=== PATIENT | male | born 1975 | race Caucasian/White ===

== ENCOUNTER 2022-12-23 19:58 | Emergency (ER) | payer OTHER, SELFPAY ==
--- NOTE | ~2022-12-23 | CT_ITS ---
EXAMINATION: CT abdomen pelvis w con INDICATION: Abdominal pain and vomiting TECHNIQUE: Computed tomographic images of the abdomen and pelvis were obtained after the administrati on of 100 cc of Omnipaque 350 intravenous contrast. The dose-length product (DLP) was 679.51 mGy-cm. Automated exposure control and iterative reconstruction technique were employed. COMPARISON: None available FINDINGS: Minimal dependent atelectasis is present in the lung bases. The heart size is normal. Stone s are present in the gallbladder which is mildly distended. There is mild pericholecystic inflammator y change. No gallbladder wall thickening is identified. There is a focal area of subcapsular hyperenh ancement in liver segment which appears to connect portions of the right portal and hepatic veins, possible venovenous malformation. The spleen, pancreas, and right adrenal gland are normal. There is a 2.1 cm mass of the left adrenal gland. Cysts of the kidneys measure up to 2.3 cm on the left. No p athologically enlarged abdominal or pelvic lymph nodes are identified. No free intraperitoneal gas or evidence of bowel obstruction. The appendix is normal. IMPRESSION: 1. Cholelithiasis and mild gallbladder distention with mild pericholecystic inflammatory change, poss ibly cholecystitis. Consider further evaluation with ultrasound or nuclear hepatobiliary scan. Findin gs were communicated to the emergency Department at 1445 hours on 12/24/2022 Reviewed, dictated and finalized at location A. IMPRESSION: 1. Cholelithiasis and mild gallbladder distention with mild pericholecystic inf lammatory change, possibly cholecystitis. Consider further evaluation with ultr asound or nuclear hepatobiliary scan. Findings were communicated to the emergen cy Department at 1445 hours on 12/24/2022
[2022-12-23 20:06] VITALS: BP 124/85; PULSE 56; RESP 18; TEMP 36.5; O2SAT 100
[2022-12-23 20:18] LABS: Basophils Absolute Auto 0.1 K/mm3 (0.0-0.1); Basophils Percent Auto 0.7 % (0.2-1.2); Eosinophils Absolute Auto 0.1 K/mm3 (0-0.3); Eosinophils Percent Auto 0.8 % (0-4.4); Hematocrit 43.1 % (42.0-52.0); Immature Granulocyte Absolute 0.02 K/mm3 (0.00-0.031); Immature Granulocyte Percent A 0.2 % (0-0.5); Lymphocytes Absolute Auto 2.01 K/mm3 (0.9-3.2); Lymphocytes Percent Auto 19.9 % (18.3-44.2); Mean Corpuscular HGB Conc 37.1 g/dl (32-36); Mean Corpuscular Hemoglobin 32.9 pg (26-34); Mean Corpuscular Volume 88.5 fl (80-100); Mean Platelet Volume 10.5 fl (7.4-10.4); Monocytes Absolute Auto 0.6 K/mm3 (0.1-0.6); Monocytes Percent Auto 6.3 % (2.6-8.5); Neutrophils Absolute Auto 7.3 K/mm3 (1.3-6.7); Neutrophils Percent Auto 72.1 % (45.5-73.1); Platelet Count Result 201 k/mm3 (150-375); Red Blood Count 4.87 M/mm3 (4.6-6.20); Red Cell Distribution Width 11.8 % (11.5-14.5); White Blood Count 10.1 K/mm3 (4.5-10.0)
[2022-12-23 20:28] LABS: Alanine Aminotransferase 24 U/L (6-50); Albumin Level 4.9 g/dL (3.5-5.1); Alkaline Phosphatase 66 U/L (38-126); Anion Gap 8 mmol/L (8-16); Aspartate Amino Transferase 22 U/L (17-59); Bilirubin,Total 1.3 mg/dL (0.2-1.3); Blood Urea Nitrogen 11 mg/dL (9-20); Calcium 8.9 mg/dL (8.4-10.2); Carbon Dioxide 27 mmol/L (22-30); Chloride 104 mmol/L (98-107); Estimated CRCL calculation 95 ml/min; Estimated Glomerular Filt Rate > 60; Glucose 109 mg/dL (65-110); Lipase 112 U/L (23-300); Potassium 3.8 mmol/L (3.4-5.0); Sodium 139 mmol/L (137-145)
[2022-12-23 21:37] VITALS: BP 120/88; PULSE 74; RESP 18; TEMP 36.9; O2SAT 100
[2022-12-23 22:16] LABS: Appearance Urine Clear (Clear); Bacteria Urine None Seen /hpf; Bilirubin Urine 1+ (Negative); Blood Urine Negative (Negative); Color Urine Dark Yellow (Yellow); Glucose Urine UA Negative (Negative); Ketones Urine 1+ mg/dL (Negative); Leukocyte Esterase Ur Negative LEU/UL (Negative); Need Manual Microscopic Reviewed; Nitrate Urine Negative (Negative); Protein Urine Trace mg/dL (Negative); RBC Urine 0-2 /hpf (0-2); Squamous Epithelial Cell Urine None seen /hpf (Few); WBC Urine 0-5 /hpf; pH Urine 5.5 (5.0-9.0)
[2022-12-23 22:17] LABS: Add Urine Microscopic? YES
--- NOTE | 2022-12-23 23:10 | ED.ABDPAIN ---
HPI - Abdominal Pain General Chief Complaint: Abdominal Pain <BERYL Nesbitt Last Filed: 12/25/22 17:13> Stated Complaint: abd pain, nausea/vomiting blood <BERYL Nesbitt Last Filed: 12/25/22 17:13> Time Seen by Provider: 12/23/22 21:58 <BERYL Nesbitt Last Filed: 12/25/22 17:13> Source: patient <BERYL Nesbitt Last Filed: 12/25/22 17:13> Mode of arrival: ambulatory <BERYL Nesbitt Last Filed: 12/25/22 17:13> Limitations: no limitations <BERYL Nesbitt Last Filed: 12/25/22 17:13> History of Present Illness HPI narrative: This is a 47-year-old male that presents to the emergency department for abdominal pain. Reports he has suffered with chronic abdominal pain over the last several years. Reports the pain is intermittent and sharp in the epigastrium. Sometimes it lasts for several hours. It was usually at night. Now he also experiences this pain during the day. He has not been evaluated by GI doctor or had an endoscopy for this yet. He has had some nausea and vomiting associated with his pain today. He also reports he saw some streaks of blood in his vomit today. Denies fevers or diarrhea. <Jessica Reid PA-C - Last Filed: 12/25/22 17:13> Related Data Allergies/Adverse Reactions: Allergies Allergy/AdvReac Type Severity Reaction Status Date / Time No Known Allergies Allergy Verified 12/23/22 19:59 <BERYL Nesbitt Last Filed: 12/25/22 17:13> Review of Systems Review of Systems: CONSTITUTIONAL: Denies fever CARDIOVASCULAR: Denies chest pain RESPIRATORY: Denies dyspnea. GASTROINTESTINAL: Reports abdominal pain, nausea, vomiting. Denies diarrhea. <BERYL Nesbitt Last Filed: 12/25/22 17:13> All systems reviewed & are unremarkable except as noted in HPI and below <BERYL Nesbitt Last Filed: 12/25/22 17:13> PMFSH Past Medical History Medical History: Medical History (Updated 12/25/22 @ 00:00 by Christie Leo) No active medical problems <Jessica Reid PA-C - Last Filed: 12/25/22 17:13> Social History Social History: Social History (Updated 12/23/22 @ 23:13 by Jessica Reid PA-C) Substance use: never <Jessica Reid PA-C - Last Filed: 12/25/22 17:13> Exam Narrative: GENERAL: Well-appearing, well-nourished, and in no acute distress. HEAD: Normocephalic, atraumatic. EYES: EOMI. CHEST: Clear to auscultation. No respiratory distress. No wheezes rales or rhonchi HEART: Regular rate and rhythm. No murmur heard. Normal peripheral pulses. ABDOMEN: Soft, nondistended, normal active bowel sounds. Mild tenderness to palpation in the epigastrium, without guarding EXTREMITIES: Normal range of motion. No edema. SKIN: Warm, dry, no rash. NEURO: No focal deficits. Alert and oriented x3. PSYCH: Normal mood and affect <Jessica Reid PA-C - Last Filed: 12/25/22 17:13> Course Course Emergency Course: Patient reports relief with IV fluids, Protonix and Zofran <Jessica Reid PA-C - Last Filed: 12/25/22 17:13> LAUNDRY PRICING CLERK/PA Physician Supervision This is a was performed by both a physician and an APC. I performed all aspects of the MDM as documented w/ the following additions: 39-year-old male presenting with acute on chronic abdominal pain. original CT read overnight was interpreted as no acute findings although the over-read in the morning showed possible signs of cholecystitis. This was communicated to the patient. patient given return precautions for the ED. All questions answered. Patient in agreement w/ disposition. <Keith Nuñez MD - Last Filed: 12/25/22 20:07> Vital Signs Vital signs: Vital Signs Temperature 97.7 F 12/23/22 20:06 Pulse Rate 56 L 12/23/22 20:06 Respiratory Rate 18 12/23/22 20:06 Blood Pressure 124/85 12/23/22 20:06 Pulse Oximetry 100 12/23/22 20:06 Temperature 98.6 F 12/24/22 01:04 P
[2022-12-23] MEDS: ONDANSETRON INJ 4 MG/2 ML VIAL IV PUSH (23:14)
[2022-12-23] MEDS: PANTOPRAZOLE SODIUM IV 40 MG VIAL IV PUSH (23:14)
[2022-12-23] MEDS: SODIUM CHLORIDE 0.9% IV 1,000 ML 999 ML IV CONT (23:14)
[2022-12-23 23:33] VITALS: BP 127/89; PULSE 77; RESP 18; O2SAT 99
--- NOTE | 2022-12-23 23:34 | PC.NURSE ---
meds given IVP and ivf are infusing without difficulty. pt is axox4, abc are wnl nad. pt denies pain at this time
[2022-12-24 01:04] VITALS: BP 130/83; PULSE 52; RESP 18; TEMP 37
--- NOTE | 2023-01-05 01:44 | PC.NURSE ---
LATE ENTRY This note is being entered to document information to the patient's record. The following information was omitted on [12/25/22], by [cd]. iv stopped at 23:57
== END 2022-12-24 02:36 | disposition home or self-care (01) ==
PROVIDERS: Emergency Medicine; Emergency Provider Physician Assistant
DX: R10.13 Epigastric pain (principal); D35.02 Benign neoplasm of left adrenal gland; N28.1 Cyst of kidney, acquired; K80.20 Calculus of gallbladder without cholecystitis without obstruction
CPT/HCPCS: 36415; 74177; 80053; 81001; 83690; 85025; 96361; 96374; 96375; 99284; C9113; J2405; J7030; Q9967